=== PATIENT | female | born 1975 | race Caucasian/White ===

== ENCOUNTER 2024-03-07 15:30 | Emergency (ER) | payer OTHER ==
[2024-03-07] MEDS: Ketorolac 30 MG/ML SDV IM ONE (17:17)
== END 2024-03-07 18:46 | disposition home or self-care (01) ==
LOC: JP.ED 15:30
DX: S93.402A Sprain of unspecified ligament of left ankle, initial encounter (principal); Z79.899 Other long term (current) drug therapy; Z88.1 Allergy status to other antibiotic agents; Z91.010 Allergy to peanuts; X50.1XXA Overexertion from prolonged static or awkward postures, initial encounter
CPT/HCPCS: 73610; 96372; 99283; J1885